=== PATIENT | female | born 1970 | race African-American/Black ===

== ENCOUNTER → 2018-03-26 | Outpatient (CLI) | payer BC, OTHER ==
[~2018-03-26] MED LIST: AMIO200T4 PO; ASPI-482 PO; NITR2.5C3 PO
[2018-03-26 13:02] LABS: FECAL OB PT NEGATIVE (NEG)
== END | disposition home or self-care (01) ==
LOC: LAB 11:27
PROVIDERS: ATTEND Internal Medicine
DX: R10.9 Unspecified abdominal pain (principal); R19.7 Diarrhea, unspecified; R11.0 Nausea; R19.5 Other fecal abnormalities
CPT/HCPCS: 82274; 87045; 87177; 87205; 87493